=== PATIENT | male | born 1975 | race Two or more races ===

== ENCOUNTER 2024-04-06 08:39 | Emergency (ER) | payer OTHER ==
[~2024-04-06] VITALS: Ht 170.2 cm; Wt 83.9 kg
[2024-04-06] MEDS ORDERED: KETOROLAC TROMETHAMINE 60 MG VIAL IM STA (09:16)
[2024-04-06] MEDS ORDERED: KETOROLAC TROMETHAMINE 60 MG VIAL IM ONE (09:35)
== END 2024-04-06 11:00 | disposition home or self-care (01) ==
LOC: ER 08:41
DX: M54.50 Low back pain, unspecified (principal)